=== PATIENT | male | born 1955 | race African-American/Black ===

== ENCOUNTER 2024-12-11 06:50 | Day surgery (SDC) | payer OTHER ==
[2024-12-09 13:42] LABS: Absolute Basophils 0.1 K/uL (0-0.5); Absolute Eosinophils 0.2 K/uL (0-0.5); Absolute Lymphocytes (CBC) 1.7 K/uL (0.7-4.9); Absolute Monocytes 0.6 K/uL (0.1-1.3); Absolute Neutrophil 6.1 K/uL (1.8-8.0); Basophils % 0.7 % (0-1.3); Eosinophils % 2.4 % (0-4.4); Hematocrit 40.2 % (39.6-49.0); Hemoglobin 13.4 g/dL (13.6-17.9); Lymphocytes % 19.9 % (15.3-44.8); MCH 28.5 pg (27.0-35.0); MCHC 33.3 g/dL (32.0-36.0); MCV 85.6 fL (80-100); MPV 8.5 fL (7.6-11.3); Monocytes % 6.7 % (3.3-12.3); Neutrophils % 70.3 % (41.7-73.7); Nucleated Red Blood Cells % 0.1 % (0-0); Platelets 374 thou/uL (152-406); RBC Red Blood Cell Count 4.69 M/uL (4.33-5.43); Red Cell Distribution Width 14.5 % (12.1-15.2)
[2024-12-09 13:58] LABS: Anion Gap 7.7 mEq/L (5.0-15.0); Potassium 3.7 mEq/L (3.5-5.1)
[2024-12-11] MEDS ORDERED: LIDOCAINE 1% MPF 5 ML VIAL ONE (07:31)
[2024-12-11] MEDS ORDERED: propofoL 200 MG/20 ML VIAL IV ONE (07:31)
[2024-12-11] MEDS: Ringers Lactate 1,000 ML IV ONE (08:54)
[2024-12-11 10:19] VITALS: O2SAT 99
[2024-12-11 10:20] VITALS: BP 195/110; TEMP 98.2
--- NOTE | 2024-12-14 17:02 | EKG ---
Test Date: 2024-12-09 Test Time: 12:34:49 Relationship Banker: FRANCO MEASUREMENT RESULTS: Intervals: Rate: 76 DC: 146 QRSD: 76 QT: 392 QTc: 441 [place]: P: 79 DC: 146 QRS: 62 T: 74 INTERPRETIVE STATEMENTS: Normal sinus rhythm Junctional ST depression, probably normal Borderline ECG No previous ECG available for comparison Electronically Signed On 12-14-24 16:56:22 CDT by Calixto Taylor
== END 2024-12-11 10:10 | disposition home or self-care (01) ==
LOC: OR 06:50
PROVIDERS: ATTEND Surgery
PROC: 0DJD8ZZ Inspection of Lower Intestinal Tract, Via Natural or Artificial Opening Endoscopic (ICD-10-PCS; principal; 2024-12-11 08:45)
DX: R19.5 Other fecal abnormalities (principal); Z91.199 Patient's noncompliance with other medical treatment and regimen due to unspecified reason
CPT/HCPCS: 93005; 85025; 80048; 36415; 45378; J2704; J2003; J7120